=== PATIENT | female | born 1985 | race Caucasian/White ===

== ENCOUNTER 2017-03-05 09:12 | Emergency (ER) | payer BC ==
[~2017-03-05] VITALS: Ht 175.3 cm; Wt 72.6 kg
[~2017-03-05 09:12] MED LIST: DOCUSATE SOD100 MG PO; IRON TABLETS325 MG PO; NOMEDS *; PRENATAL PLUS1 TA1 PO
--- NOTE | 2017-03-05 09:56 | Urgent Treatment Center Report ---
History of Present Issue Date/Time Seen by Provider 03/05/17 0950 Visit Reason Pt arrived:Walked Presenting Problem:PT C/O BILATERAL EAR PAIN BUT ADVISES THAT THE PAIN IS WORSE IN THE RT EAR. PT STATES THAT SHE HAS BEEN FIGHTING A SINUS INFECTION FOR A COUPLE WKS AND IT'S WORKED ITS WAY TO HER EARS Location if Accident: Onset of symptoms date/time:/ or onset unknown for:MEDICAL HX UNKNOWN Have you (or family members/close friends) recently traveled outside the [place]? N If Yes, where/when: Have you had exposure to infectious disease within the past month? TB? Other? Specify: Patient state that she has been having bilateral ear pain States that the right ear hurts worse and hurts when she touches it or tries to lay on it. States that she also thinks she may have a sinus infection States that she has been blowing out green mucous and has fever blisters on the outside of her nose. State that her throat is sore and she has been running a fever but not sure of how high because she has not checked it ALLERGIES Coded Allergies: No Known Allergies (03/05/17) Home Medications Reported Medications MULTIVIT-MIN W/FE-FA ( Multivitamin Tablet) 1 TAB PO DAILY DOCUSATE SODIUM (Docusate Sodium) 100 MG PO DAILY Ferrous Sulfate (Iron Tablet) 325 MG PO DAILY History Medical History General Angina: No [place]: No Hypertension? No Hyperlipidemia? No CHF? No COPD? No Asthma? No Anemia? No GERD? No Gastric ulcers? No GI Bleed? No Hernia? No Thyroid Problems? No Hypothyroidism? No CVA? No Seizures? No Diabetes? No UTI? No Stones? No BPH? No GB Disease: No Nephritic Syndrome? No Asplenia? No Hepatitis? No Sickle Cell Disease? No Arthritis? No Migraines? No Cataracts? No Glaucoma? No MRSA? No HIV? No TB? No Anxiety? No Depression? No Cancer? No Immunization HX DT/Tetanus > 10 YRS Flu 2013-FSN Pneumonia Never Had Surgical Hx Previous Surgery?Y Tonsils DENTAL SURGERY Social History Smoking Hx Smoker: Former Smoker Tobacco: Yes Type Cigarettes Alcohol Alcohol: No Review of Systems All Other Systems Reviewed and Negative Constitutional fever ENT ear pain, ear discharge, nose discharge, nose congestion, throat pain. Physical Exam Vital Signs Vital Signs Date Time Temp Pulse Resp B/P Pulse O2 O2 Flow FiO2 Ox Delivery Rate 03/05 936 98.4 68 20 126/96 100 - WBC >12,000 or <4,000 or 10% bands? 2 or more SIRS Criteria Met? B/P:126/96 MAP:106 Creatinine >2.0? UA output<0.5ml/kg/hr for 2 hrs? Platelet count >100,000? Lactate >2.0mmol/1? INR >1.2 or PTT > than 60 sec? Evidence of Organ Dysfunction? Provider documented clinical suspician of infection? Sepsis Criteria Count: 1 Sepsis Risk: General Appearance Patient appears ill sitting on exam table Ear, Nose, Throat sinus pain/drainage, nasal congestion, Throat bright red, nares red blisters noted, right ear puss noted TM visable, Left ear dull TM buldging Respiratory Status Yes: trachea midline, chest symmetrical, non tender chest. No: respiratory distress. 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 No Results/Orders Laboratory Tests 03/05/17 0940: Group A Strep Screen NOT DETECTED Orders Procedure Date/time Status [facility] STREP SCREEN 03/05 0955 Complete Departure Departure Time of Disposition 1020 Disposition DC Home or Self Care(routine) Clinical Impression Primary Impression: Otitis externa Qualifiers: Otitis externa type: unspecified type Chronicity: unspecified Laterality: right Qualified Code: H60.91 - Unspecified otitis externa, right ear Secondary Impressions: Sinusitis Qualifiers: Sinusitis location: maxillary Chronicity: unspecified Qualified Code: J32.0 - Chronic maxillary sinusitis Condition STABLE Patient Instructions Cold Sores, DI for Cold Sores, DI for Otitis Externa, DI for Sinusitis, Sinusitis, Sore Throat Additional Instructions * Monitor Temp. Tylenol and/or Ibuprofen as needed. ER if fever is no less than 101 despite alternating Tylenol and Ibuprofen * Encourage fluids, water, Gatorade, powerade, pedialyte if infant/toddler/or child * Warm salt water gargles for throat irritation *Warm fluids *Sore throat lozenges *Sleep elevated *humidifier or vaporizer Follow up IMMEDIATELY for new or worsening of symptoms OR no noticeable improvement over the next 48-72 hours. 911 immediately for any life threatening symptoms such as chest pain or difficulty breathing Discharge Counseling Counseled pt/family regarding diagnosis, test results, medications/RX, home care, follow up needs Prescriptions Current Visit Scripts Amoxicillin/Potassium Clav (Augmentin 875-125 Tablet) 1 EACH PO BID #14 TAB [id number] OTIC SUSP (Ogdaostb-Vkapctpdz-Ia Ear Susp) 4 DROP OT QID #1 BOT INSTILL IN AFFECTED EAR(S) at 1024
--- NOTE | 2017-03-05 09:56 | Urgent Treatment Center Report ---
History of Present Issue Date/Time Seen by Provider 03/05/17 0950 Visit Reason Pt arrived:Walked Presenting Problem:PT C/O BILATERAL EAR PAIN BUT ADVISES THAT THE PAIN IS WORSE IN THE RT EAR. PT STATES THAT SHE HAS BEEN FIGHTING A SINUS INFECTION FOR A COUPLE WKS AND IT'S WORKED ITS WAY TO HER EARS Location if Accident: Onset of symptoms date/time:/ or onset unknown for:MEDICAL HX UNKNOWN Have you (or family members/close friends) recently traveled outside the [place]? N If Yes, where/when: Have you had exposure to infectious disease within the past month? TB? Other? Specify: Patient state that she has been having bilateral ear pain States that the right ear hurts worse and hurts when she touches it or tries to lay on it. States that she also thinks she may have a sinus infection States that she has been blowing out green mucous and has fever blisters on the outside of her nose. State that her throat is sore and she has been running a fever but not sure of how high because she has not checked it ALLERGIES Coded Allergies: No Known Allergies (03/05/17) Home Medications Reported Medications MULTIVIT-MIN W/FE-FA ( Multivitamin Tablet) 1 TAB PO DAILY DOCUSATE SODIUM (Docusate Sodium) 100 MG PO DAILY Ferrous Sulfate (Iron Tablet) 325 MG PO DAILY History Medical History General Angina: No [place]: No Hypertension? No Hyperlipidemia? No CHF? No COPD? No Asthma? No Anemia? No GERD? No Gastric ulcers? No GI Bleed? No Hernia? No Thyroid Problems? No Hypothyroidism? No CVA? No Seizures? No Diabetes? No UTI? No Stones? No BPH? No GB Disease: No Nephritic Syndrome? No Asplenia? No Hepatitis? No Sickle Cell Disease? No Arthritis? No Migraines? No Cataracts? No Glaucoma? No MRSA? No HIV? No TB? No Anxiety? No Depression? No Cancer? No Immunization HX DT/Tetanus > 10 YRS Flu 2013-FSN Pneumonia Never Had Surgical Hx Previous Surgery?Y Tonsils DENTAL SURGERY Social History Smoking Hx Smoker: Former Smoker Tobacco: Yes Type Cigarettes Alcohol Alcohol: No Review of Systems All Other Systems Reviewed and Negative Constitutional fever ENT ear pain, ear discharge, nose discharge, nose congestion, throat pain. Physical Exam Vital Signs Vital Signs Date Time Temp Pulse Resp B/P Pulse O2 O2 Flow FiO2 Ox Delivery Rate 03/05 936 98.4 68 20 126/96 100 - WBC >12,000 or <4,000 or 10% bands? 2 or more SIRS Criteria Met? B/P:126/96 MAP:106 Creatinine >2.0? UA output<0.5ml/kg/hr for 2 hrs? Platelet count >100,000? Lactate >2.0mmol/1? INR >1.2 or PTT > than 60 sec? Evidence of Organ Dysfunction? Provider documented clinical suspician of infection? Sepsis Criteria Count: 1 Sepsis Risk: General Appearance Patient appears ill sitting on exam table Ear, Nose, Throat sinus pain/drainage, nasal congestion, Throat bright red, nares red blisters noted, right ear puss noted TM visable, Left ear dull TM buldging Respiratory Status Yes: trachea midline, chest symmetrical, non tender chest. No: respiratory distress. 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 No Results/Orders Laboratory Tests 03/05/17 0940: Group A Strep Screen NOT DETECTED Orders Procedure Date/time Status [facility] STREP SCREEN 03/05 0955 Complete Departure Departure Time of Disposition 1020 Disposition DC Home or Self Care(routine) Clinical Impression Primary Impression: Otitis externa Qualifiers: Otitis externa type: unspecified type Chronicity: unspecified Laterality: right Qualified Code: H60.91 - Unspecified otitis externa, right ear Secondary Impressions: Sinusitis Qualifiers: Sinusitis location: maxillary Chronicity: unspecified Qualified Code: J32.0 - Chronic maxillary sinusitis Condition STABLE Patient Instructions Cold Sores, DI for Cold Sores, DI for Otitis Externa, DI for Sinusitis, Sinusitis, Sore Throat Additional Instructions * Monitor Temp. Tylenol and/or Ibuprofen as needed. ER if fever is no less than 101 despite alternating Tylenol and Ibuprofen * Encourage fluids, water, Gatorade, powerade, pedialyte if infant/toddler/or child * Warm salt water gargles for throat irritation *Warm fluids *Sore throat lozenges *Sleep elevated *humidifier or vaporizer Follow up IMMEDIATELY for new or worsening of symptoms OR no noticeable improvement over the next 48-72 hours. 911 immediately for any life threatening symptoms such as chest pain or difficulty breathing Discharge Counseling Counseled pt/family regarding diagnosis, test results, medications/RX, home care, follow up needs Prescriptions Current Visit Scripts Amoxicillin/Potassium Clav (Augmentin 875-125 Tablet) 1 EACH PO BID #14 TAB [id number] OTIC SUSP (Owczxqop-Guzvqkzop-So Ear Susp) 4 DROP OT QID #1 BOT INSTILL IN AFFECTED EAR(S) at 1024
[2017-03-05] MEDS ORDERED: CORTISPORIN (GE10 M1 OT (10:24)
[2017-03-05] MEDS ORDERED: AUGMENTIN 875-1 EACH PO (10:24)
[2017-03-05 10:49] VITALS: BP 126/96
== END 2017-03-05 10:49 | disposition home or self-care (01) ==
LOC: UTC 09:12
DX: H60.91 Unspecified otitis externa, right ear (principal); J32.0 Chronic maxillary sinusitis

== ENCOUNTER 2017-04-17 13:16 | Emergency (ER) | payer BC ==
[~2017-04-17] VITALS: Ht 175.3 cm; Wt 75.3 kg
[~2017-04-17 13:16] MED LIST changes: +AUGMENTIN 875-1 EACH PO; +CORTISPORIN (GE10 M1 OT
--- OUTSIDE RECORDS SUMMARY | 2017-04-17 13:46 | External Medical Summary Rpt ---
Author Author NATTY Diaz, [employer] Address Unknown Phone Unavailable Results Streptococcus pyogenes Ag [Presence] in Unspecified specimen Observa Value Referen Units Interpr Notes Date tion ce etation Range Strepto NOT NOTDETE No No LOT # Sep 10 coccus DETECTE CTED informa informa N/A EXP 2016 pyogene D tion in tion in DATE 9:40 AM s Ag source source N/A [Presen data data ce] in Unspeci fied specime n
--- OUTSIDE RECORDS SUMMARY | 2017-04-17 13:46 | External Medical Summary Rpt | CCD ---
Demographics Preferred Language Japanese Marital Status Unknown Yarsanism Affiliation Unknown Race Unknown Ethnic Group Unknown Author Author , NATTY LUZ Address Unknown Phone Immunization Unable to retrieve immunization data due to connection failure with Immunization Registry. Please try again later.
--- OUTSIDE RECORDS SUMMARY | 2017-04-17 13:46 | External Medical Summary Rpt | CCD ---
Demographics Preferred Language Nepali Marital Status Unknown Mandaeism Affiliation Unknown Race Unknown Ethnic Group Unknown Author Author , NATTY LUZ Address Unknown Phone Immunization Unable to retrieve immunization data due to connection failure with Immunization Registry. Please try again later.
--- OUTSIDE RECORDS SUMMARY | 2017-04-17 13:46 | External Medical Summary Rpt | CCD ---
Author Author , ANAYA LUZ Address Unknown Phone [email or web address] Purpose Continuity of Care Document - 03-05-2017 through 2016 Results Labs Lab Lab Date Result Refere Interp Status Commen Order Detail nces retati t Range on Streptococcus pyogenes Ag [Presence] in Unspecified specimen (03-05-2017 09:40) Strepto NOT NOTDETE complet coccus [address] ed pyogene 09:40 D s Ag [Presen ce] in Unspeci fied specime n
--- OUTSIDE RECORDS SUMMARY | 2017-04-17 13:46 | External Medical Summary Rpt | CCD ---
Author Author , ANAYA LUZ Address Unknown Phone [email or web address] Purpose Continuity of Care Document - 03-05-2017 through 2016 Results Labs Lab Lab Date Result Refere Interp Status Commen Order Detail nces retati t Range on Streptococcus pyogenes Ag [Presence] in Unspecified specimen (03-05-2017 09:40) Strepto NOT NOTDETE complet coccus [address] pyogene 09:40 D s Ag [Presen ce] in Unspeci fied specime n
[2017-04-17 13:47] LABS: URINE BILIRUBIN - DIPSTICK NEGATIVE (NEG); URINE BLOOD 2+ (NEG)
[2017-04-17 13:51] LABS: HEMOGLOBIN 13.8 g/dL (12.2-16.2); LYMPH # 1.6 K/mm3 (0.7-4.5); LYMPH % 24.6 % (10-50.0)
--- NOTE | 2017-04-17 15:03 | Emergency Room Report ---
History of Present Illness Time Seen by MD Benites Presenting Problem in Triage Pt arrived:Walked Presenting Problem:PT C/O PAIN IN HER ABD THAT GOES INTO HER RIGHT FLANK. HAS BEEN HAVING SOME PAIN ALL WEEK BUT IT HAS GOTTEN PROGRESSIVELY WORSE Onset of symptoms date/time:/ or onset unknown for:MEDICAL HX UNKNOWN Treatment Prior to Arrival: [employer] Provided by: Sepsis Risk Assessment: Temp: 98.2 B/P: 135/83 MAP: 100 Pulse: 95 Resp: 16 Recent fever? N Clinical Suspician of Infection? N Mental Status: 1 - Regular (Normal Baseline) Sepsis Risk:Low Sepsis Risk Have you (or family members/close friends) recently traveled outside the [place]? N If Yes, where/when: Have you had exposure to infectious disease within the past month? N TB? Other? Specify: Patient with acute, waxing and waning R flank pain and hematuria for the past four days; initially had pain in RUQ and seen by PCP, who ordered GB US, which she missed today as pain began to increase in the RLQ and she then presented to the ED. She has felt some nausea, but has not vomited; menses are irregular as she has an IUD, urine preg negative in ED today. ALLERGIES Coded Allergies: No Known Allergies (03/05/17) Home Medications Reported Medications No Known Home Medications History Medical History General CAD? No Angina: No [place]: No Hypertension? No Hyperlipidemia? No CHF? No DVT? No PE? No COPD? No Asthma? No Anemia? No GERD? No Gastric ulcers? No GI Bleed? No Hernia? No Thyroid Problems? No Hypothyroidism? No CVA? No Seizures? No Diabetes? No End Stage Renal Disease? No UTI? No Stones? No BPH? No GB Disease: No Nephritic Syndrome? No Asplenia? No Hepatitis? No Sickle Cell Disease? No Arthritis? No Migraines? No Cataracts? No Glaucoma? No MRSA? No HIV? No TB? No Anxiety? No Depression? No Cancer? 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 Physical Exam Vital Signs Vital Signs Date Time Temp Pulse Resp B/P Pulse O2 O2 Flow FiO2 Ox Delivery Rate 04/17 1507 20 04/17 1323 98.2 95 16 135/83 98 General Appearance normal appearance, WD/WN, no apparent distress Eye Exam - bilateral eye normal exam, bilateral eye PERRL, bilateral eye EOMI Neck normal inspection, non-tender, supple Respiratory Status Yes: trachea midline, chest symmetrical, non tender chest. No: respiratory distress, tender on palpation, use of accessory muscles, pain on inspiration, pain on expiration, productive cough, non productive cough. Lung Sounds bilateral: normal breath sounds, lungs clear. Cardiovascular normal exam, regular rate/rhythm, no peripheral edema, no gallop, no JVD, no murmur, no rub, normal peripheral pulses Gastrointestinal normal bowel sounds, normal exam, non tender, soft, no organomegaly, no guarding, rebound Back normal inspection, CVA tenderness (R) Extremities normal range of motion Strength 5 Upper Ext (L), 5 Upper Ext (R), 5 Lower Ext (L), 5 Lower Ext (R) Neurologic alert, normal exam, no motor/sensory deficits, oriented x 3 Glascow Coma Scale Glascow Coma Scale Response Value EYE response: 4 Spontaneously 4 MOTOR response: 6 OBEYS 6 VERBAL response: 5 Oriented & Converses 5 Total 15 Skin intact, normal color, warm/dry Medical Decision Making LABS/Meds/Orders Pt receiving controlled substance in ED? No Results/Orders Laboratory Tests 04/17/17 1340: Sodium 139, Potassium 3.3 L, Chloride 104, Carbon Dioxide 24, BUN 12, Creatinine 0.8, Estimated Creat Clear 122, Estimated GFR (MDRD) 84, Glucose 122 H, Calcium 9.2, Total Bilirubin 0.3, AST 11 L, ALT 16, Alkaline Phosphatase 73, Total Protein 8.2, Albumin 4.3, Globulin 3.9 H, Albumin/Globulin Ratio 1.1, Amylase 29, Lipase 140, WBC 6.5, RBC 4.42, Hgb 13.8, Hct 41.3, MCV 93.6, RDW 12.1, Plt Count 288, MPV 7.0 L, Gran % 66.1, Gran # 4.3, Lymphocytes % 24.6, Monocytes % 6.6, Eosinophils % 2.2, Basophils % 0.4, Lymphocytes # 1.6, Monocytes # 0.4, Eosinophils # 0.1, Basophils # 0.0, PUBS MCHC 33.3, MCH 31.1 04/17/17 1330: Urine Color YELLOW, Urine Appearance CLEAR, Urine pH 6.0, Ur Specific [place] 1.025, Urine Protein NEGATIVE, Urine Ketones TRACE H, Urine Blood 2+ H, Urine Nitrate NEGATIVE, Urine Bilirubin NEGATIVE, Urine Urobilinogen 0.2, Ur Leukocyte Esterase NEGATIVE, Urine RBC 5-10, Urine WBC OCC, Ur Squamous Epith Cells 3-5, Urine Bacteria 3+, Urine Mucus 1+, Urine Glucose NEGATIVE Current Medication Orders Sig/Nicyk Start time Last Medication Dose Route Stop Time Status Admin Ketorolac 30 MG ONCE ONE 04/17 1515 DC 04/17 Tromethamine IV 04/17 151 1507 Ondansetron HCl 4 MG ONCE ONE 04/17 1515 DC 04/17 IV 04/17 1516 1506 Ketorolac 0 .STK-MED ONE 04/17 1504 DC Tromethamine .ROUTE Ondansetron HCl 0 .STK-MED ONE 04/17 1504 DC .ROUTE Sodium Chloride 10 ML PRN PRN 04/17 1330 AC IV 04/18 1329 Orders Procedure Date/time Status DIET-NOTHING BY MOUTH 04/17 D Active CULTURE, URINE 04/[address] ABD/PELVIS REQ 04/17 1329 Active IV SALINE LOCK 04/17 1329 Active URINALYSIS/COMPLETE 04/17 1329 Complete URINE 04/17 1329 Complete LIPASE 04/17 1329 Complete CBC WITH AUTO DIFF 04/17 1329 Complete CHEM 12 PROFILE 04/17 1329 Complete AMYLASE 04/17 1329 Complete XRAY/CT/US XRAY/CT/US CT abdomen, pelvis CT interpretation by reviewed by me (report reviewed) Time results known: 1530 CT Results abnormal, gall bladder sludge, possibility of stone, but not definitely seen Progress ED Progress Notes Date 04/17/17 Time 1531 Comment Feeling better s/p Toradol and Zofran. Departure Departure Time of Disposition 153 Disposition DC Home or Self Care(routine) Clinical Impression Primary Impression: Bacteria in urine Secondary Impressions: Biliary sludge, Right lateral abdominal pain Condition STABLE Patient Instructions DI for General Gallbladder Conditions Additional Instructions Bactrim for bacteria in urine; recommend outpatient ultrasound as originally recommended by your primary care provider in [place]: see her for follow up after you obtain the study she ordered. Rx Zofran and Naproxen; recommend low fat diet. Prescriptions Current Visit Scripts SULFAMETHOXAZOLE W/TRIMETHOPRI (Bactrim Ds Tab) 1 TABLET PO BID #10 TAB NAPROXEN (NAPROXEN 500MG TAB) 500 MG PO BIDP PRN pain #20 TAB Ondansetron (Zofran 4MG Odt) 4 MG PO Q6HP PRN NAUSEA AND VOMITING #10 ODT ED Critical Care Critical Care No at 2745
--- NOTE | 2017-04-17 15:03 | Emergency Room Report ---
History of Present Illness Time Seen by MD Benites Presenting Problem in Triage Pt arrived:Walked Presenting Problem:PT C/O PAIN IN HER ABD THAT GOES INTO HER RIGHT FLANK. 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 N Clinical Suspician of Infection? N Mental Status: 1 - Regular (Normal Baseline) Sepsis Risk:Low Sepsis Risk Have you (or family members/close friends) recently traveled outside the [place]? N If Yes, where/when: Have you had exposure to infectious disease within the past month? N TB? Other? Specify: Patient with acute, waxing and waning R flank pain and hematuria for the past four days; initially had pain in RUQ and seen by PCP, who ordered GB US, which she missed today as pain began to increase in the RLQ and she then presented to the ED. She has felt some nausea, but has not vomited; menses are irregular as she has an IUD, urine preg negative in ED today. ALLERGIES Coded Allergies: No Known Allergies (03/05/17) Home Medications Reported Medications No Known Home Medications History Medical History General CAD? No Angina: No LA: No Hypertension? No Hyperlipidemia? No CHF? No DVT? No PE? No COPD? No Asthma? No Anemia? No GERD? No Gastric ulcers? No GI Bleed? No Hernia? No Thyroid Problems? No Hypothyroidism? No CVA? No Seizures? No Diabetes? No End Stage Renal Disease? No UTI? No Stones? No BPH? No GB Disease: No Nephritic Syndrome? No Asplenia? No Hepatitis? No Sickle Cell Disease? No Arthritis? No Migraines? No Cataracts? No Glaucoma? No MRSA? No HIV? No TB? No Anxiety? No Depression? No Cancer? No Immunization Hx DT/Tetanus > 10 YRS Flu [id number] Flu Season Pneumonia Never Had Surgical Hx Previous Surgery?Y Tonsils DENTAL SURGERY [employer] Hx LMP N/A Social History Smoking Hx Smoker: Never Smoker Tobacco: No Alcohol Alcohol: No Review of Systems All Other Systems Reviewed and Negative Gastrointestinal see HPI, abdominal pain, nausea Genitourinary see HPI (has dysuria ). Physical Exam Vital Signs Vital Signs Date Time Temp Pulse Resp B/P Pulse O2 O2 Flow FiO2 Ox Delivery Rate 04/17 1507 20 04/17 1323 98.2 95 16 135/83 98 General Appearance normal appearance, WD/WN, no apparent distress Eye Exam - bilateral eye normal exam, bilateral eye PERRL, bilateral eye EOMI Neck normal inspection, non-tender, supple Respiratory Status Yes: trachea midline, chest symmetrical, non tender chest. No: respiratory distress, tender on palpation, use of accessory muscles, pain on inspiration, pain on expiration, productive cough, non productive cough. Lung Sounds bilateral: normal breath sounds, lungs clear. Cardiovascular normal exam, regular rate/rhythm, no peripheral edema, no gallop, no JVD, no murmur, no rub, normal peripheral pulses Gastrointestinal normal bowel sounds, normal exam, non tender, soft, no organomegaly, no guarding, rebound Back normal inspection, CVA tenderness (R) Extremities normal range of motion Strength 5 Upper Ext (L), 5 Upper Ext (R), 5 Lower Ext (L), 5 Lower Ext (R) Neurologic alert, normal exam, no motor/sensory deficits, oriented x 3 Glascow Coma Scale Glascow Coma Scale Response Value EYE response: 4 Spontaneously 4 MOTOR response: 6 OBEYS 6 VERBAL response: 5 Oriented & Converses 5 Total 15 Skin intact, normal color, warm/dry Medical Decision Making LABS/Meds/Orders Pt receiving controlled substance in ED? No Results/Orders Laboratory Tests 04/17/17 1340: Sodium 139, Potassium 3.3 L, Chloride 104, Carbon Dioxide 24, BUN 12, Creatinine 0.8, Estimated Creat Clear 122, Estimated GFR (MDRD) 84, Glucose 122 H, Calcium 9.2, Total Bilirubin 0.3, AST 11 L, ALT 16, Alkaline Phosphatase 73, Total Protein 8.2, Albumin 4.3, Globulin 3.9 H, Albumin/Globulin Ratio 1.1, Amylase 29, Lipase 140, WBC 6.5, RBC 4.42, Hgb 13.8, Hct 41.3, MCV 93.6, RDW 12.1, Plt Count 288, MPV 7.0 L, Gran % 66.1, Gran # 4.3, Lymphocytes % 24.6, Monocytes % 6.6, Eosinophils % 2.2, Basophils % 0.4, Lymphocytes # 1.6, Monocytes # 0.4, Eosinophils # 0.1, Basophils # 0.0, PUBS MCHC 33.3, MCH 31.1 04/17/17 1330: Urine Color YELLOW, Urine Appearance CLEAR, Urine pH 6.0, Ur Specific [place] 1.025, Urine Protein NEGATIVE, Urine Ketones TRACE H, Urine Blood 2+ H, Urine Nitrate NEGATIVE, Urine Bilirubin NEGATIVE, Urine Urobilinogen 0.2, Ur Leukocyte Esterase NEGATIVE, Urine RBC 5-10, Urine WBC OCC, Ur Squamous Epith Cells 3-5, Urine Bacteria 3+, Urine Mucus 1+, Urine Glucose NEGATIVE Current Medication Orders Sig/Nicky Start time Last Medication Dose Route Stop Time Status Admin Ketorolac 30 MG ONCE ONE 04/17 1515 DC 04/17 Tromethamine IV 04/17 151 1507 Ondansetron HCl 4 MG ONCE ONE 04/17 1515 DC 04/17 IV 04/17 1516 1506 Ketorolac 0 .STK-MED ONE 04/17 1504 DC Tromethamine .ROUTE Ondansetron HCl 0 .STK-MED ONE 04/17 1504 DC .ROUTE Sodium Chloride 10 ML PRN PRN 04/17 1330 AC IV 04/18 1329 Orders Procedure Date/time Status DIET-NOTHING BY MOUTH 04/17 D Active CULTURE, URINE 04/[address] ABD/PELVIS REQ 04/17 1329 Active IV SALINE LOCK 04/17 1329 Active URINALYSIS/COMPLETE 04/17 1329 Complete URINE 04/17 1329 Complete LIPASE 04/17 1329 Complete CBC WITH AUTO DIFF 04/17 1329 Complete CHEM 12 PROFILE 04/17 1329 Complete AMYLASE 04/17 1329 Complete XRAY/CT/US XRAY/CT/US CT abdomen, pelvis CT interpretation by reviewed by me (report reviewed) Time results known: 1530 CT Results abnormal, gall bladder sludge, possibility of stone, but not definitely seen Progress ED Progress Notes Date 04/17/17 Time 1531 Comment Feeling better s/p Toradol and Zofran. Departure Departure Time of Disposition 153 Disposition DC Home or Self Care(routine) Clinical Impression Primary Impression: Bacteria in urine Secondary Impressions: Biliary sludge, Right lateral abdominal pain Condition STABLE Patient Instructions DI for General Gallbladder Conditions Additional Instructions Bactrim for bacteria in urine; recommend outpatient ultrasound as originally recommended by your primary care provider in [place]: see her for follow up after you obtain the study she ordered. Rx Zofran and Naproxen; recommend low fat diet. Prescriptions Current Visit Scripts SULFAMETHOXAZOLE W/TRIMETHOPRI (Bactrim Ds Tab) 1 TABLET PO BID #10 TAB NAPROXEN (NAPROXEN 500MG TAB) 500 MG PO BIDP PRN pain #20 TAB Ondansetron (Zofran 4MG Odt) 4 MG PO Q6HP PRN NAUSEA AND VOMITING #10 ODT ED Critical Care Critical Care No at [id number]
--- NOTE | 2017-04-17 15:11 | RADIOLOGY REPORT PS360 ---
CT ABD PELVIS W/O CONTRAST HISTORY: R FLANK PAIN, ABD PAIN, NEGATIVE UPT 04/17/17 Patient Age: 31 years: Female Ordering Physician: Pilar Howe MD TECHNIQUE: Helical CT scanning abdomen pelvis with no oral nor IV contrast were removed, and common with her previousted (were no architectural changes biopsies or previous mammogram studies. The great inferiorly is a new may need wall noted today's right] that resulttai COMPARISON :Previous CT abdomen September 2011 FINDINGS Lung bases clear. Abdomen/pelvis. Lack of oral and IV contrast decreases sensitivity. Liver, pancreas, spleen unremarkable on this noncontrast exam. No significant change since 2011. Gallbladder. Sludge with additional suggestion vague noncalcified suspected gallbladder on axial image 38, 39.. Cannot exclude polyp or noncalcified stone. Consider gallbladder ultrasound to further evaluate definitive right upper quadrant symptoms. Kidneys. No urinary tract Nor obstruction. The Numerous peritoneal adenopathy nor mesenteric adenopathy. Prominent stool is seen throughout the colon with generous stool particularly evident at rectosigmoid Pelvis. IUD in place on. Appears to be satisfactory position centrally at uterus. Generous size anteflexed anteverted uterus.. Ovaries appear normal in size with right ovary measuring up to 3 cm, slightly larger than left. Only scant free fluid at the pelvic basin to the right, appears physiologic most likely. Appendix is normal. Terminal ileum unremarkable. Small bowel unremarkable. Moderate food within stomach Osseous structures unremarkable. IMPRESSION: 1. No discrete acute findings abdomen pelvis Appendix normal 2. No urinary tract obstruction or calculi. 3. Likely sludge in gallbladder with question of a additional 2 mm round filling defect axial image 38. Could noncalcified stone. Less likely prominent polyp 4. Moderate to generous stool most evident at the right colon and rectum
[2017-04-17] MEDS ORDERED: NAPROXEN SODIU500 MG PO (15:34)
[2017-04-17] MEDS ORDERED: BACTRIM DS 8001 TA1 PO (15:34)
[2017-04-17] MEDS ORDERED: ZOFRAN ODT4 MG PO (15:35)
[2017-04-17 15:58] VITALS: BP 121/74
== END 2017-04-17 15:58 | disposition home or self-care (01) ==
LOC: ER 13:16
PROVIDERS: Emergency Medicine
DX: K83.8 Other specified diseases of biliary tract (principal); R82.71 Bacteriuria
CPT/HCPCS: J2405